=== PATIENT | male | born 1960 | race Two or more races ===

== ENCOUNTER 2021-05-23 15:15 | Emergency (ER) | payer MEDICAID ==
[~2021-05-23] VITALS: Ht 182.9 cm; Wt 72.6 kg
[2021-05-23] MEDS ORDERED: DOXYCYCLINE 100MG/250ML 250 ML IV ONE (20:15)
[2021-05-23] MEDS ORDERED: TETANUS-DIPTH-ACEL PERTUSSIS 0.5ML SYR Tdap IM ONE (20:15)
[2021-05-23 22:22] LABS: Basophils # (auto) 0.1 10 ^3/uL (0-0.2); Basophils % (auto) 1.2 % (0.0-2.0); Eosinophils # (auto) 0.4 10 ^3/uL (0-0.8); Eosinophils % (auto) 8.3 % (0.0-7.0); Hematocrit 41.3 % (41.0-53.0); Hemoglobin 13.7 g/dL (13.5-17.5); Lymphocytes # (auto) 1.5 10 ^3/uL (0.4-5.4); Lymphocytes % (auto) 29.1 % (10.0-50.0); Mean Corpuscular Hemoglobin 29.2 pg (28.0-32.0); Mean Corpuscular Hgb Conc. 33.2 g/dL (32.0-36.0); Mean Corpuscular Volume 87.9 fL (80.0-100.0); Monocytes # (auto) 0.5 10 ^3/uL (0-1.3); Monocytes % (auto) 9.8 % (0.0-12.0); Neutrophils # (auto) 2.6 10 ^3/uL (1.6-8.6); Neutrophils % (auto) 51.6 % (37.0-80.0); Nucleated Red Blood Cells % 0.2 %; Red Cell Distribution Width 13.3 % (11.8-14.3); White Blood Cell 5.1 10^3/uL (4.4-10.8)
[2021-05-23 22:48] LABS: Calcium 8.5 mg/dL (8.5-10.1); Potassium 3.8 mmol/L (3.5-5.1)
[2021-05-23 22:51] LABS: BUN/Creatinine Ratio 8.4; CRP High Sensitivity 0.55 mg/dL (< 0.3)
[2021-05-24 00:09] VITALS: BP 169/99
== END 2021-05-24 01:51 | disposition home or self-care (01) ==
LOC: ER 15:15
DX: L03.114 Cellulitis of left upper limb (principal)
CPT/HCPCS: 36415; 73130; 80048; 83605; 85025; 85652; 86141; 87040; 90471; 90715; 96365; 96366; 99284; J3490